=== PATIENT | female | born 1950 | race Caucasian/White ===

== ENCOUNTER 2017-03-01 06:59 | Day surgery (SDC) | payer BC ==
--- NOTE | 2017-02-26 09:31 | PAT Medication Instructions ---
Service Date Feb 26, 2017. Current Home Medication List Acetaminophen (Tylenol), 2 TAB PO Q6 Amlodipine (Norvasc), 2.5 MG PO QAM Aspirin (Aspirin Ec), 81 MG PO PM Cinnamon (Cinnamon), 1 TAB PO BID Hctz/Lisinopril (Lisinopril/Hctz 10/12.5 Mg), 1 TAB PO BID Meloxicam (Mobic), 15 MG PO QAM Multivitamin (Multivitamin), 1 TAB PO QAM Omeprazole (Prilosec), 20 MG PO QAM Potassium Ext Rel (Klor-Con), Unknown Dose PO QAM Ranitidine (Zantac), 150 MG PO BID Medication Instructions For Your Scheduled Surgery - Per patient, stopped already: Meloxicam (Mobic), 15 MG PO QAM Aspirin (Aspirin Ec), 81 MG PO PM - Hold the following medications as of 02/26/17: Cinnamon (Cinnamon), 1 TAB PO BID - Hold the following medications 24 hours prior to surgery: Hctz/Lisinopril (Lisinopril/Hctz 10/12.5 Mg), 1 TAB PO BID - Hold the following medications the morning of surgery: Potassium Ext Rel (Klor-Con), Unknown Dose PO QAM Multivitamin (Multivitamin), 1 TAB PO QAM - Take the following medications the morning of surgery with a sip of water OTHERWISE NOTHING TO EAT OR DRINK AFTER MIDNIGHT: Acetaminophen (Tylenol), 2 TAB PO Q6 (may take if needed up to 4 hours prior to surgery) Amlodipine (Norvasc), 2.5 MG PO QAM Ranitidine (Zantac), 150 MG PO BID Omeprazole (Prilosec), 20 MG PO QAM - Take the following medications as scheduled the night before surgery: Acetaminophen (Tylenol), 2 TAB PO Q6 Ranitidine (Zantac), 150 MG PO BID If you have any questions please call us at [phone] or [phone] or [phone]
[~2017-03-01] VITALS: Ht 152.4 cm; Wt 71.5 kg
[~2017-03-01 06:59] MED LIST: ACET-1256 PO; AMLO2.5T PO; ASPI81TA28 PO; CEFAZOLIN 2000 MG/60 ML D5W IV SCH; CINN500T PO; LACTATED RINGER'S 1000ML 1,000 ML IV SCH; LSN/10125 PO; MELO15TA10 PO; MULT-506 PO; POTA20TA16 PO; PRLSR20 PO; ZNTT/150 PO
[2017-03-01] MEDS ORDERED: WHEATAB2 PO (07:19)
[2017-03-01 07:20] VITALS: BP 150/77; PULSE 66; TEMP 36.8; O2SAT 99; Ht 152.4 cm; Wt 71.5 kg
[2017-03-01] MEDS ORDERED: NEOSTIGMINE METHYLSULFATE 5 MG/5 ML SYR ONE (07:26)
[2017-03-01] MEDS ORDERED: ONDANSETRON INJ 2 MG/ML 2 ML VIAL ONE ×2 (07:26→10:33)
[2017-03-01] MEDS ORDERED: DEXAMETHASONE SOD INJ 4 MG/ML VIAL ONE (07:26)
[2017-03-01] MEDS ORDERED: PROPOFOL IV EMULSION 10 MG/ML 20 ML VIAL IV ONE (07:26)
[2017-03-01] MEDS ORDERED: GLYCOPYRROLATE INJ 0.2 MG/ML VIAL ONE ×2 (07:26→07:49)
[2017-03-01] MEDS ORDERED: ROCURONIUM BROMIDE 10 MG/ML 5 ML VIAL ONE (07:26)
[2017-03-01] MEDS ORDERED: LIDOCAINE HCL 2% 2 ML VIAL (20MG/ML) ONE (07:26)
[2017-03-01] MEDS ORDERED: FENTANYL CITRATE INJ 50 MCG/1 ML 2 ML VIAL ONE ×3 (07:27→09:46)
[2017-03-01] MEDS ORDERED: MIDAZOLAM HCL 1 MG/ML 2ML VIAL ONE (07:27)
--- NOTE | 2017-03-01 07:48 | History & Physical Bridge Note ---
H&P Re-Evaluation Bridge Note: I have examined the patient, reviewed the History & Physical and in the interval since the performance of the History & Physical I have noted the following changes of clinical significance: No changes noted
[2017-03-01] MEDS ORDERED: KETOROLAC TROMETHAMINE 30 MG/ML VIAL ONE (07:50)
[2017-03-01] MEDS ORDERED: ONDANSETRON INJ 2 MG/ML 2 ML VIAL IV PRN ×2 (08:00→09:45)
[2017-03-01] MEDS ORDERED: MoRPHine SULFATE 2 MG/ML CARP IV PRN (08:00)
[2017-03-01] MEDS ORDERED: OXYCODONE/ACETAMINOPHEN 5-325 TAB PO PRN (08:00)
[2017-03-01] MEDS ORDERED: BUPIVACAINE/EPINEPHRINE 0.5% MPF 1:200,000 30 ML VIAL ONE (08:17)
[2017-03-01] MEDS ORDERED: EpHEDrine SULFATE 50MG/5ML SYR ONE (08:55)
[2017-03-01] MEDS ORDERED: PHENYLEPHRINE 100MCG/ML 5ML SYR ONE (08:56)
--- NOTE | 2017-03-01 09:10 | [facility] Post Operative Brief Note ---
Immediate Operative Summary Operative Date Mar 01, 2017. Pre-Operative Diagnosis Biliary Dyskinesia Post-Operative Diagnosis same as preop Procedure(s) Performed Laparoscopic cholecystectomy Surgeon Dr. Luque [employer] Intern Surgeon(s) Margo Deshpande PA-C Estimated Blood Loss 5 ML Findings adhesions on GB Specimens A: Gallbladder Drains none Anesthesia GETA w/marcaine Complication(s) None Disposition Recovery Room / PACU
[2017-03-01] MEDS ORDERED: OXYC-57 PO (09:12)
--- NOTE | 2017-03-01 09:14 | Discharge Instructions ---
Discharge Instructions Date of Service Mar 01, 2017. Admission Reason for Admission: Biliary Dyskinesia Discharge Discharge Diagnosis / Problem: Biliary dyskinesia Discharge Goals Goal(s): Therapeutic intervention Activity Recommendations Activity Limitations: per Instructions/Follow-up section Lifting Limitations: no more than 25 pounds Exercise/Sports Limitations: none, until after follow-up appointment May Resume Sexual Activity: when tolerated Shower/Bathe: tomorrow (remove dressings and replace as needed; leave steris in place) Driving or Machine Use: resume 3 days after discharge (as long as not requiring narcotics) . Instructions / Follow-Up Instructions / Follow-Up ezra; 2 weeks; [id number] Current Hospital Diet Patient's current hospital diet: Discharge Diet Recommended Diet: Regular Diet Procedures Procedures Performed: Laparoscopic cholecystectomy Pending Studies Studies pending at discharge: no Work Instructions Return To Work: after follow-up Additional Instructions: return on light duty as tolerated Medical Emergencies . Who to Call and When: Medical Emergencies: If at any time you feel your situation is an emergency, please call 911 immediately. . Non-Emergent Contact Non-Emergency issues call your: Primary Care Provider, Surgeon Call Non-Emergent contact if: temperature is above 101.5, your pain is not controlled, your pain is worsening, your pain is unusual for you, your pain is concerning you, wound has increased redness, wound has increased pain, you have any medication questions . "Provider Documentation" section prepared by Ishmael Luque. VTE Core Measure Inpt VTE Proph given/why not?: SCD's [place] Drug Monitoring Program Search Results: patient reviewed within database
[2017-03-01] MEDS ORDERED: MEPERIDINE HCL 25 MG/ML CARP IV PRN (09:45)
[2017-03-01] MEDS ORDERED: EpHEDrine SULFATE INJ 50 MG/ML AMP IV PRN (09:45)
[2017-03-01] MEDS ORDERED: FENTANYL CITRATE INJ 50 MCG/1 ML 2 ML VIAL IV PRN (09:45)
[2017-03-01] MEDS ORDERED: LABETALOL HCL IV 5 MG/ML 20ML IV PRN (09:45)
[2017-03-01] MEDS ORDERED: ATROPINE SULFATE 0.1 MG/ML 5ML SYR IV PRN (09:45)
[2017-03-01] MEDS ORDERED: HYDROmorphone INJ 1 MG/ML SYR IV PRN (09:45)
--- NOTE | 2017-03-01 09:47 | OPERATIVE REPORT ---
DATE OF OPERATION: 03/01/2017 PREOPERATIVE DIAGNOSIS: Biliary dyskinesia. POSTOPERATIVE DIAGNOSIS: Same. PROCEDURE PERFORMED: Laparoscopic cholecystectomy. SURGEON: Td Luque MD SCHEDULE SUPERVISOR: Margo Shin PA-C ESTIMATED BLOOD LOSS: 5 mL. COMPLICATIONS: None. DRAINS: None. SPECIMENS: Gallbladder to pathology. HISTORY OF PRESENT ILLNESS: This is a 66-year-old female who was seen in my office with disabling gallbladder symptoms. She had a HIDA scan which showed basically 0% ejection fraction, which reproduced her pain. We talked to her in detail about biliary dyskinesia. She has elected to proceed with laparoscopic cholecystectomy. She understands the risk of common duct injury, retained common bile duct stone, postop bile leak, open procedure, bleeding and possible wound problems. DESCRIPTION OF PROCEDURE: The patient was taken to the OR and underwent excellent general endotracheal anesthesia. Abdomen was prepped and draped in normal sterile fashion. Transverse supraumbilical incision was made and dissection was taken down to identify her anterior fascia. A Vicryl was placed in either side of the midline. The midline was incised sharply. Desirae trocar was then inserted after the peritoneal was entered bluntly with a Amira clamp. Good pneumoperitoneum achieved to 15 mmHg pressure. An 11 subxiphoid and two 5 lateral ports were placed in normal fashion. The patient was placed in head up and rolled to the left. Gallbladder was identified. There were multiple adhesions to the gallbladder. Fundus was grasped and retracted superiorly. The adhesions were taken down sharply with cautery. The neck was then grasped and retracted laterally. The peritoneal attachments were taken down. She had an enlarged cystic lymph node which appeared to be inflamed. This was taken down with cautery. The rest of the Calot's triangle was then exposed showing the cystic duct and cystic artery going straight to the gallbladder. Once this critical view was seen along with portion of the cystic plate, 3 clips were placed distally on the cystic duct and 1 proximally and the cystic duct was transected. Two clips were then placed proximally in the cystic artery, 1 distally on the cystic artery and cystic artery was transected. A clip was also placed on the lymph node where some of the distal blood supply was taken down with cautery. This freed up the neck of the gallbladder. The gallbladder was then removed using electrocautery hook. The gallbladder was sent for pathologic evaluation. Pneumoperitoneum was reestablished. Gallbladder fossa was checked. There were some small areas of bleeding on the gallbladder fossa which were cauterized. This was then irrigated out and suctioned clear. The clips were well placed in the duct and artery. The ports were then removed. Pneumoperitoneum was decompressed. A 0 Vicryl was used to close the fascial defect. A 0.5% Marcaine with epinephrine local was used to create a local field block. Interrupted Vicryl was used to close the subQ and interrupted Vicryl was used to close the skin. Steri-Strips and benzoin were used to reinforce the incision. Sterile dressings were applied. The patient tolerated the procedure well without any complications, sent to post-recovery for a period of observation and discharged home once she meets criteria. I attest to the content of the Intraoperative Record and any orders documented therein. Any exceptio ns are noted below.
[2017-03-01 10:15] VITALS: BP 130/60; PULSE 74; TEMP 36.4; O2SAT 93
--- NOTE | 2017-03-01 10:25 | Anesthesiology Progress Note ---
Anesthesia Post Op Note Date & Time Mar 01, 2017 at 10:24 Vital Signs Pain Intensity: 4 Vital Signs Past 12 Hours Date Time Temp Pulse Resp B/P Pulse Ox O2 Delivery O2 Flow Rate FiO2 03/01/17 10:08 65 15 100 03/01/17 10:08 65 15 03/01/17 10:06 36.2 03/01/17 10:05 128/63 03/01/17 10:03 68 16 97 03/01/17 10:03 70 16 03/01/17 10:02 64 17 03/01/17 10:02 64 17 100 03/01/17 10:00 129/69 03/01/17 09:57 70 21 03/01/17 09:57 72 21 100 03/01/17 09:55 135/63 03/01/17 09:52 72 17 03/01/17 09:52 72 17 100 03/01/17 09:51 132/56 03/01/17 09:47 77 24 97 03/01/17 09:47 74 24 03/01/17 09:46 139/58 03/01/17 09:42 70 14 03/01/17 09:42 70 14 100 03/01/17 09:41 74 15 03/01/17 09:41 74 15 100 03/01/17 09:40 126/63 03/01/17 09:36 72 15 03/01/17 09:36 72 15 100 03/01/17 09:35 127/61 03/01/17 09:31 78 17 138/59 100 03/01/17 09:31 78 17 03/01/17 09:26 89 15 03/01/17 09:26 89 15 136/59 100 03/01/17 09:26 36.1 90 10 136/59 100 Mask 10 03/01/17 07:20 36.8 66 16 150/77 99 Room Air Notes Mental Status: alert / awake / arousable, participated in evaluation Pt Amnestic to Procedure: Yes Nausea / Vomiting: adequately controlled Pain: adequately controlled Airway Patency, RR, SpO2: stable & adequate BP & HR: stable & adequate Hydration State: stable & adequate Anesthetic Complications: no major complications apparent
[2017-03-01 10:45] VITALS: BP 121/59; PULSE 64; O2SAT 93
[2017-03-01 11:15] VITALS: BP 113/49; PULSE 66; TEMP 36.3; O2SAT 100
[2017-03-01 11:45] VITALS: BP 117/57; PULSE 67; TEMP 36.4; O2SAT 98
[2017-03-01] MEDS ORDERED: OXYCODONE/ACETAMINOPHEN 5-325 TAB ONE (12:03)
[2017-03-01 12:35] VITALS: BP 136/74; PULSE 64; O2SAT 98
== END 2017-03-01 12:35 | disposition home or self-care (01) ==
LOC: C.ACU 06:59
PROVIDERS: ATTEND Surgery
DX: K82.8 Other specified diseases of gallbladder (principal); K81.1 Chronic cholecystitis; I10 Essential (primary) hypertension; E11.9 Type 2 diabetes mellitus without complications; K21.9 Gastro-esophageal reflux disease without esophagitis; E66.9 Obesity, unspecified; Z68.30 Body mass index [BMI] 30.0-30.9, adult; Z91.040 Latex allergy status; Z98.890 Other specified postprocedural states; Z79.82 Long term (current) use of aspirin; Z79.899 Other long term (current) drug therapy; Z83.3 Family history of diabetes mellitus; Z80.0 Family history of malignant neoplasm of digestive organs; Z80.7 Family history of other malignant neoplasms of lymphoid, hematopoietic and related tissues

== ENCOUNTER → 2017-12-30 | Outpatient (CLI) | payer BC ==
[~2017-12-30] MED LIST changes: -CEFAZOLIN 2000 MG/60 ML D5W IV SCH; -LACTATED RINGER'S 1000ML 1,000 ML IV SCH; +RANI150T85 PO; +WHEATAB2 PO; -ZNTT/150 PO
== END | disposition home or self-care (01) ==
LOC: C.PAPS 09:15
PROVIDERS: ATTEND Obstetrics & Gynecology
DX: Z01.419 Encounter for gynecological examination (general) (routine) without abnormal findings (principal)